=== PATIENT | female | born 1965 ===

== ENCOUNTER 2021-09-24 16:39 | Emergency (ER) | payer OTHER ==
[~2021-09-24] VITALS: Ht 154.9 cm; Wt 36.3 kg
[2021-09-24 16:44] VITALS: BP 159/104
[2021-09-24] MEDS ORDERED: ONDANSETRON 4 MG/2 ML VIAL IVP ONE (16:50)
[2021-09-24] MEDS ORDERED: MORPHINE SULFATE 4 MG/ML SYR IVP ONE ×2 (16:50→19:25)
--- NOTE | 2021-09-24 17:45 | NUR ---
Patient transported to bed 11 from chair A. Placed into a gown and satellite project site monitor. Blankets provided. Bed locked in lowest position, side rails x 2.
--- NOTE | 2021-09-24 17:50 | NUR ---
Emesis bag provided, pt with 1 episode of vomiting.
--- NOTE | 2021-09-24 17:50 | NUR ---
56 y/o F BIB self c/o acute onset of abdominal pain with associated nausea + vomiting. Patient A&Ox4, ambulatory, reports at 1200 today she began experiencing 10/10, sore/constant, non-radiating pain. Patient denies diarrhea, constipation, fever, chills, SOB, dizziness, dysuria, urinary symptoms. States Pepto Bismol and Gillian [place] without relief to symptoms. Pt reports "It feels like I have to go poop and it's causing the pain." Generalized abdomen tender to palpation. Pt states pain is unprovoked and random. ekg monitor tech in place. Bed locked in lowest position, side rails x 2. Last BM: yesterday; normal. PMH: AAA repair, asthma, HTN Meds: Denies A: PCN Sx: AAA repair. Incision scar mid abd
--- NOTE | 2021-09-24 18:04 | NUR ---
Lab at bedside
[2021-09-24 18:32] LABS: BASOPHILS % (AUTO) 0.9 % (0.0-2.0); EOSINOPHILS % (AUTO) 1.2 % (0.0-4.0); HEMATOCRIT 32.6 % (36-48); HEMOGLOBIN 10.6 g/dL (12.0-16.0); LYMPHOCYTES % (AUTO) 33.1 % (20.5-51.1); MEAN CORPUSCULAR HEMOGLOBIN 32 pg (27-31); MEAN CORPUSCULAR HGB CONC 32 g/dL (33-37); MEAN CORPUSCULAR VOLUME 99.1 fL (80-94); MONOCYTES # (AUTO) 0.4 K/uL (0.8-1.0); MONOCYTES % (AUTO) 11.9 % (1.7-9.3); NEUTROPHILS # (AUTO) 1.6 K/uL (1.8-7.7); NEUTROPHILS % (AUTO) 52.9 % (42.2-75.2); PLATELET COUNT (AUTO) 183 K/uL (140-450); RED BLOOD CELL COUNT(AUTO) 3.29 MIL/uL (4.20-5.40); RED CELL DISTRIBUTION WIDTH 20.3 % (11.6-13.7); WHITE BLOOD COUNT (AUTO) 3.1 K/uL (4.8-10.8)
[2021-09-24 18:43] VITALS: BP 141/85
[2021-09-24 18:55] LABS: ALBUMIN 3.4 g/dL (3.4-5.0); ANION GAP 18.6 (8-16); CARBON DIOXIDE 24.4 mmol/L (21-32); CREATININE 0.5 mg/dL (0.6-1.3); TOTAL BILIRUBIN 0.3 mg/dL (0.0-1.0)
[2021-09-24 18:58] LABS: APPEARANCE,URINE CLEAR (CLEAR); BILIRUBIN,URINE NEGATIVE (NEGATIVE); BLOOD, URINE NEGATIVE (NEGATIVE); COLOR,URINE YELLOW (YELLOW); LEUKOCYTE ESTERASE ,URINE NEGATIVE (NEGATIVE); NITRITE, URINE NEGATIVE (NEGATIVE); PH,URINE 6.5 (5.0-9.0); UGLUCOSE NEGATIVE (NEGATIVE)
[2021-09-24] MEDS ORDERED: POTASSIUM CHLORIDE 10 MEQ TABER PO ONE (19:25)
[2021-09-24] MEDS ORDERED: NACL 0.9% 1,000 ML IV ONE (19:25)
--- NOTE | 2021-09-24 19:27 | NUR ---
Report and transfer of care endorsed Delfina Shahid RN.
[2021-09-24 19:33] LABS: WBC,URINE 0-5 /HPF (0-5)
[2021-09-24 19:35] LABS: URINE AMORPHOUS URATE 1+ /HPF (None Seen)
--- NOTE | 2021-09-24 19:45 | NUR ---
C/O PAIN, MEDICATED ORDERED
--- NOTE | 2021-09-24 20:16 | NUR ---
RUTH CALLED REQUESTING UPDATE CECILIA NAJERA [phone]
[2021-09-24] MEDS ORDERED: ONDA-188 PO (20:21)
[2021-09-24] MEDS ORDERED: ACET-8386 PO (20:21)
--- NOTE | 2021-09-24 20:53 | NUR ---
IV D/C'D, CATHETER INTACT. Patient discharged with v/s stable. Written and verbal after care instructions given and explained. Patient alert, oriented and verbalized understanding of instructions. Ambulatory with steady gait. All questions addressed prior to discharge. ID band removed. Patient advised to follow up with PMD. Rx of HYDROCODONE AND ZOFRAN given. Patient educated on indication of medication including possible reaction and side effects. Opportunity to ask questions provided and answered.
== END 2021-09-24 20:53 | disposition home or self-care (01) ==
LOC: MED 16:39
DX: E86.0 Dehydration (principal); R10.84 Generalized abdominal pain; R11.2 Nausea with vomiting, unspecified; Z88.0 Allergy status to penicillin; Z79.899 Other long term (current) drug therapy; Z98.890 Other specified postprocedural states
CPT/HCPCS: 36415; 74176; 80053; 81001; 83690; 85025; 96361; 96374; 96375; 96376; 99284; J2270; J2405; J7030; 87804